=== PATIENT | male | born 1965 | race Caucasian/White ===

== ENCOUNTER 2021-09-16 01:27 | Emergency (ER) | payer MEDICAID ==
[~2021-09-16] VITALS: Ht 177.8 cm; Wt 127.3 kg
[~2021-09-16 01:27] MED LIST: CYCL-120 PO; IBUP-1051 PO
[2021-09-16 02:05] LABS: BASOPHILS % (AUTO) 0.2 % (0-1); EOSINOPHILS # (AUTO) 0.1 X10'3 (0-0.9); EOSINOPHILS % (AUTO) 1.1 % (0-6); HEMATOCRIT 37.2 % (42.0-52.0); HEMOGLOBIN 12.4 g/dl (14.0-17.9); LYMPHOCYTES # (AUTO) 1.6 X10'3 (1.1-4.8); LYMPHOCYTES % (AUTO) 15.7 % (21-51); MEAN CORPUSCULAR HEMOGLOBIN 27.6 PG (27.0-31.0); MEAN CORPUSCULAR HGB CONC 33.5 g/dL (33.0-36.5); MEAN CORPUSCULAR VOLUME 82.5 FL (78-98); MEAN PLATELET VOLUME 7.9 FL (7.4-10.4); MONOCYTES # (AUTO) 0.7 X10'3 (0-0.9); MONOCYTES % (AUTO) 7.4 % (2-12); NEUTROPHILS # (AUTO) 7.6 X10'3 (1.8-7.7); NEUTROPHILS % (AUTO) 75.6 % (42-75); PLATELET COUNT 260 X10'3 (140-440); RED BLOOD COUNT 4.51 X10'6 (4.70-6.10); RED CELL DISTRIBUTION WIDTH 14.8 % (11.5-14.5)
[2021-09-16 02:21] LABS: ALANINE AMINOTRANSFERASE 21 U/L (12-78); ALBUMIN 3.6 G/DL (3.4-5.0); ALBUMIN/GLOBULIN RATIO 0.9 (1.1-1.5); ALKALINE PHOSPHATASE 118 IU/L (46-116); ANION GAP 5 (8-16); ASPARTATE AMINO TRANSFERASE 18 U/L (10-37); BILIRUBIN,TOTAL 0.3 MG/DL (0.1-1.0); BLOOD UREA NITROGEN 20 MG/DL (7-18); CALCIUM 8.8 MG/DL (8.5-10.1); CHLORIDE 104 MMOL/L (99-107); CREATININE 1.33 MG/DL (0.60-1.10); GLUCOSE 94 MG/DL (70-104); POTASSIUM 3.7 MMOL/L (3.5-5.1); SODIUM 138 MMOL/L (135-145); TOTAL CARBON DIOXIDE 28.9 MMOL/L (24-32); TOTAL PROTEIN 7.6 G/DL (6.4-8.2); eGFR 55 ML/MIN
[2021-09-16] MEDS ORDERED: nitroGLYCERIN 0.4mg SUBLingual tab SL PRN (03:20)
[2021-09-16] MEDS: nitroGLYCERIN 0.4mg SUBLingual tab SL PRN ×2 (03:22→03:29)
[2021-09-16 04:38] LABS: C-REACTIVE PROTEIN 1.06 MG/DL (0.0-0.5)
[2021-09-16 04:39] LABS: D-DIMER 0.23 MG/L FEU (0-0.50)
[2021-09-16] MEDS ORDERED: metoprolol tartrate 50mg tablet PO ONE (05:35)
[2021-09-16] MEDS ORDERED: metoprolol tartrate 1mg/ml inj IV SCH (05:35)
[2021-09-16] MEDS ORDERED: hydrALAZINE 20mg/ml inj. IV ONE (05:40)
[2021-09-16] MEDS ORDERED: hyDRALAzine 10mg tablet PO ONE (05:40)
[2021-09-16 06:51] VITALS: BP 171/89
== END 2021-09-16 06:59 | disposition home or self-care (01) ==
LOC: ER 01:28
DX: I10 Essential (primary) hypertension (principal); R06.02 Shortness of breath; R07.89 Other chest pain; F15.10 Other stimulant abuse, uncomplicated; E78.00 Pure hypercholesterolemia, unspecified; K21.9 Gastro-esophageal reflux disease without esophagitis; Z72.89 Other problems related to lifestyle; Z79.899 Other long term (current) drug therapy
CPT/HCPCS: 36415; 71045; 80053; 83880; 84484; 85025; 85379; 86140; 93005; 96374; 96375; 99285; J0360; J3490

== ENCOUNTER 2024-04-16 11:57 | Outpatient (CLI) | payer MEDICAID | END 2024-04-16 23:59 | disposition home or self-care (01) | LOC: RAD 11:57 | PROVIDERS: ATTEND General Practice | DX: M51.379 Other intervertebral disc degeneration, lumbosacral region without mention of lumbar back pain or lower extremity pain (principal); M54.50 Low back pain, unspecified | CPT/HCPCS: 72100; 72220 ==

== ENCOUNTER 2024-05-18 22:16 | Emergency (ER) | payer MEDICAID ==
[~2024-05-18] VITALS: Ht 175.3 cm; Wt 115.0 kg
[2024-05-18 22:21] VITALS: TEMP 98.7
[2024-05-19 00:44] VITALS: BP 155/88
[2024-05-19] MEDS ORDERED: PRED20TA PO (01:33)
[2024-05-19] MEDS ORDERED: AZIT-164 PO (01:33)
[2024-05-19] MEDS ORDERED: ALBU8HFA INH (01:33)
[2024-05-19 01:57] VITALS: PULSE 78; RESP 17; O2SAT 96
[2024-05-19] MEDS: ipratropium/albuterol 3ml nebule NEB ONE (01:57)
[2024-05-19] MEDS: dexamethasone 4mg tablet PO ONE (01:58)
[2024-05-19 02:04] VITALS: PULSE 81; RESP 18
[2024-05-19] MEDS: diphenhydrAMINE 25 MG/10 ML UD oral solution PO ONE (02:13)
[2024-05-19] MEDS: predniSONE 20 mg tablet PO ONE (02:14)
[2024-05-19] MEDS: azithromycin 250mg tablet PO ONE (02:15)
[2024-05-19] MEDS: acetaminophen 325mg tablet PO ONE (02:29)
[2024-05-19 02:34] VITALS: PULSE 80; RESP 16; O2SAT 96
== END 2024-05-19 02:35 | disposition home or self-care (01) ==
LOC: ER 22:17
DX: J20.9 Acute bronchitis, unspecified (principal); E78.00 Pure hypercholesterolemia, unspecified; I10 Essential (primary) hypertension; G47.30 Sleep apnea, unspecified; K21.9 Gastro-esophageal reflux disease without esophagitis; F15.90 Other stimulant use, unspecified, uncomplicated; Z79.1 Long term (current) use of non-steroidal anti-inflammatories (NSAID); Z79.52 Long term (current) use of systemic steroids; Z79.899 Other long term (current) drug therapy; Z20.822 Contact with and (suspected) exposure to COVID-19
CPT/HCPCS: 36415; 71046; 87502; 87503; 87811; 94640; 99284; J7512; Q0163; 94760

== ENCOUNTER 2024-05-24 12:48 | Emergency (ER) | payer MEDICAID ==
[~2024-05-24] VITALS: Ht 175.3 cm; Wt 110.0 kg
[~2024-05-24 12:48] MED LIST changes: +ALBU8HFA INH; +AZIT-164 PO; +PRED20TA PO
[2024-05-24 12:49] VITALS: BP 187/101; TEMP 97.7
[2024-05-24] MEDS: ipratropium 0.5 MG/2.5ML nebule IH ONE (13:28)
[2024-05-24] MEDS: albuterol 2.5 MG/3 ML nebule NEB ONE (13:28)
[2024-05-24] MEDS ORDERED: prednisone 10mg tablet PO STA (13:29)
[2024-05-24 13:31] VITALS: PULSE 88; RESP 16; O2SAT 96
[2024-05-24 13:33] LABS: ALBUMIN 3.7 G/DL (3.4-5.0); ANION GAP 6 (8-16); BASOPHILS % (AUTO) 0.1 % (0-1); BLOOD UREA NITROGEN 14 MG/DL (7-18); BUN/CREATININE RATIO 10.3 (10.0-20.0); CALCIUM 8.9 MG/DL (8.5-10.1); CHLORIDE 107 MMOL/L (99-107); CREATININE 1.36 MG/DL (0.60-1.10); EOSINOPHILS % (AUTO) 0.2 % (0-6); GLUCOSE 117 MG/DL (70-104); HEMATOCRIT 41.3 % (42.0-52.0); HEMOGLOBIN 13.8 g/dl (14.0-17.9); LYMPHOCYTES # (AUTO) 0.7 X10'3 (1.1-4.8); LYMPHOCYTES % (AUTO) 7.8 % (21-51); MEAN CORPUSCULAR HEMOGLOBIN 29.7 PG (27.0-31.0); MEAN CORPUSCULAR HGB CONC 33.4 g/dL (33.0-36.5); MEAN CORPUSCULAR VOLUME 88.8 FL (78-98); MEAN PLATELET VOLUME 8.4 FL (7.4-10.4); MONOCYTES # (AUTO) 0.2 X10'3 (0-0.9); MONOCYTES % (AUTO) 2.2 % (2-12); NEUTROPHILS # (AUTO) 7.8 X10'3 (1.8-7.7); NEUTROPHILS % (AUTO) 89.7 % (42-75); PLATELET COUNT 354 X10'3 (140-440); POTASSIUM 3.6 MMOL/L (3.5-5.1); RED BLOOD COUNT 4.65 X10'6 (4.70-6.10); RED CELL DISTRIBUTION WIDTH 14.3 % (11.5-14.5); SODIUM 146 MMOL/L (135-145); TOTAL CARBON DIOXIDE 32.7 MMOL/L (24-32); WHITE BLOOD COUNT 8.7 X10'3 (4.5-11.0); eCRCL 57 ML/MIN; eGFR 53 ML/MIN
[2024-05-24 13:40] VITALS: PULSE 86; RESP 18; O2SAT 99
[2024-05-24] MEDS: predniSONE 20 mg tablet PO STA (13:53)
[2024-05-24] MEDS: azithromycin 250mg tablet PO ONE (13:54)
[2024-05-24 13:57] VITALS: RESP 22
[2024-05-24] MEDS ORDERED: ADV50100 INH (14:27)
[2024-05-24] MEDS ORDERED: ALB0.5UD IH (14:27)
[2024-05-24] MEDS ORDERED: PRED20TA PO (14:27)
== END 2024-05-24 14:36 | disposition home or self-care (01) ==
LOC: ER 12:48
DX: J44.1 Chronic obstructive pulmonary disease with (acute) exacerbation (principal); E78.00 Pure hypercholesterolemia, unspecified; G47.30 Sleep apnea, unspecified; I10 Essential (primary) hypertension; K21.9 Gastro-esophageal reflux disease without esophagitis; F15.90 Other stimulant use, unspecified, uncomplicated; F10.90 Alcohol use, unspecified, uncomplicated; Z79.1 Long term (current) use of non-steroidal anti-inflammatories (NSAID); Z79.52 Long term (current) use of systemic steroids; Z79.899 Other long term (current) drug therapy
CPT/HCPCS: 36415; 71045; 80048; 84484; 85025; 93005; 94640; 99285; J7512; 94760

== ENCOUNTER 2024-06-03 10:52 | Inpatient (IN) | payer MEDICAID ==
[2024-06-03] VITALS (10 sets, daily range): BP systolic 120; BP diastolic 54; PULSE 71–88; RESP 14–24; TEMP 97.7; O2SAT 94–99
[~2024-06-03] VITALS: Ht 175.3 cm; Wt 108.0 kg
[~2024-06-03 10:52] MED LIST changes: +ADV50100 INH; +ALB0.5UD IH
[2024-06-03] MEDS ORDERED: ipratropium/albuterol 3ml nebule NEB PRN (11:40)
[2024-06-03] MEDS: CefTRIAXone 2gm/D5W 50ml BAG 50 ML IV ONE (11:53)
[2024-06-03] MEDS: methylPREDNISolone sod succ 125mg/2ml vial IV ONE (12:01)
[2024-06-03] MEDS: nicotine 21mg patch - 24 hr TD ONE (12:14)
[2024-06-03 12:20] LABS: BASOPHILS % (AUTO) 0.3 % (0-1); EOSINOPHILS # (AUTO) 0.1 X10'3 (0-0.9); EOSINOPHILS % (AUTO) 0.7 % (0-6); HEMATOCRIT 41.3 % (42.0-52.0); HEMOGLOBIN 13.9 g/dl (14.0-17.9); LYMPHOCYTES # (AUTO) 1.5 X10'3 (1.1-4.8); LYMPHOCYTES % (AUTO) 14.6 % (21-51); MEAN CORPUSCULAR HGB CONC 33.7 g/dL (33.0-36.5); MEAN CORPUSCULAR VOLUME 88.9 FL (78-98); MEAN PLATELET VOLUME 8.4 FL (7.4-10.4); MONOCYTES # (AUTO) 0.6 X10'3 (0-0.9); MONOCYTES % (AUTO) 5.7 % (2-12); NEUTROPHILS # (AUTO) 8.2 X10'3 (1.8-7.7); NEUTROPHILS % (AUTO) 78.7 % (42-75); PLATELET COUNT 334 X10'3 (140-440); RED BLOOD COUNT 4.65 X10'6 (4.70-6.10); RED CELL DISTRIBUTION WIDTH 14.2 % (11.5-14.5); WHITE BLOOD COUNT 10.4 X10'3 (4.5-11.0)
[2024-06-03 12:33] LABS: D-DIMER 4.34 MG/L FEU (0-0.50)
[2024-06-03 12:44] LABS: ALANINE AMINOTRANSFERASE 22 U/L (12-78); ALBUMIN 3.2 G/DL (3.4-5.0); ALKALINE PHOSPHATASE 77 IU/L (46-116); ANION GAP 5 (8-16); ASPARTATE AMINO TRANSFERASE 18 U/L (10-37); BILIRUBIN,TOTAL 0.7 MG/DL (0.1-1.0); BLOOD UREA NITROGEN 18 MG/DL (7-18); BUN/CREATININE RATIO 13.5 (10.0-20.0); CALCIUM 8.4 MG/DL (8.5-10.1); CHLORIDE 103 MMOL/L (99-107); CREATININE 1.33 MG/DL (0.60-1.10); GLUCOSE 120 MG/DL (70-104); POTASSIUM 3.8 MMOL/L (3.5-5.1); SODIUM 140 MMOL/L (135-145); TOTAL CARBON DIOXIDE 31.9 MMOL/L (24-32); TOTAL PROTEIN 6.5 G/DL (6.4-8.2); eCRCL 58 ML/MIN; eGFR 55 ML/MIN
[2024-06-03 12:45] LABS: PRO BRAIN NATRIURETIC PEPTIDE 1351 PG/ML (0-125)
[2024-06-03] MEDS ORDERED: iohexol 300mg/ml 100ml inj. ONE (13:07)
[2024-06-03] MEDS: diphenhydrAMINE 50 mg/ml inj IV ONE (13:19)
[2024-06-03] MEDS: ipratropium/albuterol 3ml nebule NEB ONE (13:54)
[2024-06-03] MEDS ORDERED: enoxaparin 100mg/ml syringe SUBCUT ONE (14:20)
[2024-06-03] MEDS ORDERED: potassium Cl 20 mEq SR tablet PO PRN ×2 (14:35)
[2024-06-03] MEDS ORDERED: ondansetron/PF 4mg/2ml inj IV PRN (14:35)
[2024-06-03] MEDS ORDERED: HYDROcodone/acetaminophen 10/325mg tab PO PRN (14:35)
[2024-06-03] MEDS ORDERED: acetaminophen 325mg tablet PO PRN (14:35)
[2024-06-03] MEDS ORDERED: magnesium Cl slow-release 64mg tablet PO PRN (14:35)
[2024-06-03] MEDS ORDERED: magnesium sulf-water 2g/50mL 50 ML IV PRN (14:35)
[2024-06-03] MEDS ORDERED: magnesium sulf-water 4G/100mL 100 ML IV PRN (14:35)
[2024-06-03] MEDS ORDERED: HYDROcodone/acetaminophen 5mg/325mg tablet PO PRN (14:35)
[2024-06-03] MEDS ORDERED: potassium Cl 40MEQ/1/2NS 520ml 520 ML IV PRN (14:35)
[2024-06-03] MEDS ORDERED: mag hydrox/Alum hydrox/simeth 30ml oral suspension PO PRN (14:35)
[2024-06-03] MEDS: enoxaparin 80mg/0.8ml syringe SUBCUT ONE (14:43)
[2024-06-03] MEDS ORDERED: albuterol 2.5 MG/3 ML nebule NEB PRN (15:30)
[2024-06-03 16:15] LABS: MAGNESIUM 2.2 MG/DL (1.5-2.4)
[2024-06-03] MEDS: azithromycin/NS 500mg/250ml 250 ML IV SCH (16:50)
[2024-06-03] MEDS: normal saline 1000ml 1,000 ML IV SCH (16:50)
[2024-06-03] MEDS: lisinopril 5mg tablet PO SCH (16:50)
[2024-06-03] MEDS: ipratropium/albuterol 3ml nebule NEB SCH (16:58)
[2024-06-03] MEDS: K and/or MAG REPLACEMENT MC SCH (20:00)
[2024-06-03] MEDS ORDERED: CefTRIAXone/D5W-Rocephin 1gm 50 ML IV SCH (20:30)
[2024-06-03] MEDS: methylPREDNISolone sod succ 125mg/2ml vial IV SCH (21:22)
[2024-06-03] MEDS: furosemide 20MG tablet PO SCH (21:22)
[2024-06-03] MEDS: enoxaparin 30mg/0.3ml syringe SUBCUT SCH (21:23)
[2024-06-04] VITALS (20 sets, daily range): BP systolic 107–133; BP diastolic 47–59; PULSE 66–112; RESP 14–23; TEMP 97.5–98.4; O2SAT 94–98
[2024-06-04 03:01] LABS: BILIRUBIN,URINE NEGATIVE (Neg); CLARITY,URINE CLEAR (Clear); COLOR,URINE YELLOW (Yellow); GLUCOSE, URINE 100 mg/dl (Neg); KETONES,URINE NEGATIVE (Neg); LEUKOCYTE ESTERASE ,URINE NEGATIVE (Neg); NITRITES, URINE NEGATIVE (Neg); OCCULT BLOOD,URINE NEGATIVE (Neg); PH,URINE 5.5 (4.8-8.0); PROTEIN,URINE NEGATIVE (Neg); UROBILINOGEN,URINE 0.2 E.U/dL (0.2-1.0)
[2024-06-04 03:09] LABS: URINE AMPHETAMINE SCREEN NEGATIVE (Neg); URINE BARBITUATE SCREEN NEGATIVE (Neg); URINE BENZODIAZEPINES SCREEN NEGATIVE (Neg); URINE CANNABINOID SCREEN NEGATIVE (Neg); URINE COCAINE SCREEN NEGATIVE (Neg); URINE METHADONE SCREEN NEGATIVE (Neg); URINE OPIATE SCREEN NEGATIVE (Neg); URINE PHENCYCLIDINE SCREEN NEGATIVE (Neg)
[2024-06-04 03:21] LABS: UA COLLECTION TYPE CLN CATCH MIDSTREAM
[2024-06-04 05:02] LABS: BASOPHILS % (AUTO) 0 % (0-1); EOSINOPHILS % (AUTO) 0 % (0-6); HEMATOCRIT 38.9 % (42.0-52.0); HEMOGLOBIN 13.1 g/dl (14.0-17.9); LYMPHOCYTES # (AUTO) 0.2 X10'3 (1.1-4.8); LYMPHOCYTES % (AUTO) 2.7 % (21-51); MEAN CORPUSCULAR HEMOGLOBIN 29.6 PG (27.0-31.0); MEAN CORPUSCULAR HGB CONC 33.6 g/dL (33.0-36.5); MEAN CORPUSCULAR VOLUME 87.9 FL (78-98); MEAN PLATELET VOLUME 8.7 FL (7.4-10.4); MONOCYTES # (AUTO) 0.1 X10'3 (0-0.9); MONOCYTES % (AUTO) 0.7 % (2-12); NEUTROPHILS # (AUTO) 8.3 X10'3 (1.8-7.7); NEUTROPHILS % (AUTO) 96.6 % (42-75); PLATELET COUNT 274 X10'3 (140-440); RED BLOOD COUNT 4.43 X10'6 (4.70-6.10); RED CELL DISTRIBUTION WIDTH 14.2 % (11.5-14.5); WHITE BLOOD COUNT 8.6 X10'3 (4.5-11.0)
[2024-06-04 05:14] LABS: PROTHROMBIN TIME 10.8 SECONDS (9.0-12.0)
[2024-06-04 05:31] LABS: ALANINE AMINOTRANSFERASE 23 U/L (12-78); ALBUMIN/GLOBULIN RATIO 0.9 (1.1-1.5); ALKALINE PHOSPHATASE 72 IU/L (46-116); ANION GAP 9 (8-16); ASPARTATE AMINO TRANSFERASE 13 U/L (10-37); BILIRUBIN,TOTAL 0.4 MG/DL (0.1-1.0); BLOOD UREA NITROGEN 21 MG/DL (7-18); CALCIUM 8.8 MG/DL (8.5-10.1); CHLORIDE 103 MMOL/L (99-107); GLUCOSE 209 MG/DL (70-104); MAGNESIUM 2.2 MG/DL (1.5-2.4); PHOSPHORUS 3.1 MG/DL (2.3-4.5); POTASSIUM 3.8 MMOL/L (3.5-5.1); SODIUM 140 MMOL/L (135-145); TOTAL CARBON DIOXIDE 27.7 MMOL/L (24-32); TOTAL PROTEIN 6.5 G/DL (6.4-8.2); eCRCL 55 ML/MIN; eGFR 52 ML/MIN
[2024-06-04] MEDS: CefTRIAXone/D5W-Rocephin 1gm 50 ML IV SCH (08:29)
[2024-06-04] MEDS: nicotine 14mg patch - 24hr TD SCH (08:30)
[2024-06-04] MEDS: famotidine 20mg tablet PO SCH (08:32)
[2024-06-04] MEDS: morphine 2 MG/ML inj. syringe IV ONE (10:29)
[2024-06-04] MEDS: guaiFENesin ER 600mg tablet PO SCH (13:05)
[2024-06-04] MEDS ORDERED: morphine 2 MG/ML inj. syringe IV PRN (14:05)
[2024-06-04] MEDS: acetaminophen 325mg tablet PO PRN (16:45)
[2024-06-04] MEDS: nitroGLYCERIN 0.4mg SUBLingual tab SL PRN (17:51)
[2024-06-04] MEDS: aspirin 325mg tablet PO ONE (17:51)
[2024-06-04 18:41] LABS: CHOL/HDL RATIO 2.1 (0.00-4.99); CHOLESTEROL 164 MG/DL (0-200); HDL CHOLESTEROL 78 MG/DL (35-60); LDL CHOLESTEROL 66 MG/DL (50-100); TRIGLYCERIDES 93 MG/DL (20-135)
[2024-06-04] MEDS: pantoprazole 40 MG vial IV SCH (20:53)
[2024-06-04] MEDS ORDERED: ROPI4TAB41 PO (21:07)
[2024-06-04] MEDS ORDERED: OMEP20CA16 PO (21:07)
[2024-06-05] VITALS (16 sets, daily range): BP systolic 136–167; BP diastolic 64–90; PULSE 79–111; RESP 12–25; TEMP 98.2–99.5; O2SAT 93–96
[2024-06-05] MEDS ORDERED: ADV50100 INH (00:59)
[2024-06-05] MEDS ORDERED: ALBU8HFA INH (01:07)
[2024-06-05] MEDS ORDERED: ALB0.5UD IH (01:08)
[2024-06-05 07:21] LABS: BASOPHILS % (AUTO) 0 % (0-1); EOSINOPHILS % (AUTO) 0 % (0-6); HEMATOCRIT 37.2 % (42.0-52.0); HEMOGLOBIN 12.3 g/dl (14.0-17.9); LYMPHOCYTES # (AUTO) 0.2 X10'3 (1.1-4.8); LYMPHOCYTES % (AUTO) 1.5 % (21-51); MEAN CORPUSCULAR HEMOGLOBIN 29.2 PG (27.0-31.0); MEAN CORPUSCULAR VOLUME 88.4 FL (78-98); MEAN PLATELET VOLUME 8.6 FL (7.4-10.4); MONOCYTES # (AUTO) 0.3 X10'3 (0-0.9); MONOCYTES % (AUTO) 1.6 % (2-12); NEUTROPHILS # (AUTO) 15.9 X10'3 (1.8-7.7); NEUTROPHILS % (AUTO) 96.9 % (42-75); PLATELET COUNT 270 X10'3 (140-440); RED CELL DISTRIBUTION WIDTH 14.3 % (11.5-14.5); WHITE BLOOD COUNT 16.4 X10'3 (4.5-11.0)
[2024-06-05 07:50] LABS: ALANINE AMINOTRANSFERASE 14 U/L (12-78); ALBUMIN/GLOBULIN RATIO 0.9 (1.1-1.5); ALKALINE PHOSPHATASE 71 IU/L (46-116); ANION GAP 7 (8-16); ASPARTATE AMINO TRANSFERASE 10 U/L (10-37); BILIRUBIN,TOTAL 0.3 MG/DL (0.1-1.0); BLOOD UREA NITROGEN 33 MG/DL (7-18); BUN/CREATININE RATIO 17.7 (10.0-20.0); CALCIUM 8.6 MG/DL (8.5-10.1); CHLORIDE 102 MMOL/L (99-107); CREATININE 1.86 MG/DL (0.60-1.10); GLUCOSE 156 MG/DL (70-104); MAGNESIUM 2.2 MG/DL (1.5-2.4); PHOSPHORUS 3.3 MG/DL (2.3-4.5); POTASSIUM 4.3 MMOL/L (3.5-5.1); SODIUM 139 MMOL/L (135-145); TOTAL CARBON DIOXIDE 30.2 MMOL/L (24-32); TOTAL PROTEIN 6.3 G/DL (6.4-8.2); eCRCL 42 ML/MIN; eGFR 37 ML/MIN
[2024-06-05] MEDS ORDERED: nitroGLYCERIN 0.4mg SUBLingual tab SL PRN (14:55)
[2024-06-05] MEDS ORDERED: metoprolol tartrate 1mg/ml inj IV PRN (14:55)
[2024-06-05] MEDS ORDERED: aminophylline 250mg/10ml inj. IV PRN (14:55)
[2024-06-05] MEDS ORDERED: ROPINIRole 1mg tablet PO PRN (15:15)
[2024-06-05] MEDS: aspirin 81mg, enteric-coated 1 TAB TABLET.DR PO ONE (16:18)
[2024-06-05] MEDS: lisinopril 5mg tablet PO SCH (16:21)
[2024-06-06] VITALS (20 sets, daily range): BP systolic 116–170; BP diastolic 64–82; PULSE 71–101; RESP 14–21; TEMP 97.3–98.4; O2SAT 92–98
[2024-06-06 09:03] LABS: BASOPHILS % (AUTO) 0 % (0-1); EOSINOPHILS % (AUTO) 0 % (0-6); HEMATOCRIT 38.3 % (42.0-52.0); HEMOGLOBIN 12.6 g/dl (14.0-17.9); LYMPHOCYTES # (AUTO) 0.3 X10'3 (1.1-4.8); LYMPHOCYTES % (AUTO) 2.5 % (21-51); MEAN CORPUSCULAR HEMOGLOBIN 29.4 PG (27.0-31.0); MEAN CORPUSCULAR VOLUME 89.1 FL (78-98); MEAN PLATELET VOLUME 8.9 FL (7.4-10.4); MONOCYTES # (AUTO) 0.2 X10'3 (0-0.9); MONOCYTES % (AUTO) 1.8 % (2-12); NEUTROPHILS # (AUTO) 11.5 X10'3 (1.8-7.7); NEUTROPHILS % (AUTO) 95.7 % (42-75); PLATELET COUNT 273 X10'3 (140-440); RED CELL DISTRIBUTION WIDTH 14.5 % (11.5-14.5)
[2024-06-06 09:58] LABS: ALANINE AMINOTRANSFERASE 18 U/L (12-78); ALBUMIN 3.2 G/DL (3.4-5.0); ALBUMIN/GLOBULIN RATIO 0.9 (1.1-1.5); ALKALINE PHOSPHATASE 80 IU/L (46-116); ANION GAP 7 (8-16); ASPARTATE AMINO TRANSFERASE 18 U/L (10-37); BILIRUBIN,TOTAL 0.3 MG/DL (0.1-1.0); BLOOD UREA NITROGEN 35 MG/DL (7-18); BUN/CREATININE RATIO 22.7 (10.0-20.0); CHLORIDE 105 MMOL/L (99-107); CREATININE 1.54 MG/DL (0.60-1.10); GLUCOSE 146 MG/DL (70-104); MAGNESIUM 2.4 MG/DL (1.5-2.4); PHOSPHORUS 4.4 MG/DL (2.3-4.5); POTASSIUM 4.1 MMOL/L (3.5-5.1); SODIUM 141 MMOL/L (135-145); TOTAL CARBON DIOXIDE 28.8 MMOL/L (24-32); TOTAL PROTEIN 6.7 G/DL (6.4-8.2); eCRCL 50 ML/MIN; eGFR 46 ML/MIN
[2024-06-06] MEDS: regadenoson 0.4mg/5ml syringe IV PRN (09:58)
[2024-06-06] MEDS ORDERED: FURO20TA4 PO (12:55)
[2024-06-06] MEDS ORDERED: NITR0.4T51 SL (12:55)
[2024-06-06] MEDS ORDERED: PRED10TA23 PO (12:55)
[2024-06-06] MEDS ORDERED: GUAI600T45 PO (12:55)
[2024-06-06] MEDS ORDERED: ASPI-1265 PO (12:57)
[2024-06-06] MEDS ORDERED: CEFD300C3 PO (12:57)
[2024-06-06] MEDS ORDERED: METO50TA16 PO (12:57)
[2024-06-06] MEDS ORDERED: ATOR20TA66 PO (12:57)
[2024-06-06] MEDS: lisinopril 10 MG tablet PO ONE (17:50)
== END 2024-06-06 19:25 | disposition home or self-care (01) | DRG 140 ==
LOC: ER 10:52 → PCU 3S 14:39
PROVIDERS: ADMIT Internal Medicine; ATTEND Internal Medicine
PROC: 4A02XM4 Measurement of Cardiac Total Activity, External Approach (ICD-10-PCS; principal; 2024-06-06)
PROC: 3E073KZ Introduction of Other Diagnostic Substance into Coronary Artery, Percutaneous Approach (ICD-10-PCS; 2024-06-06)
DX: J44.1 Chronic obstructive pulmonary disease with (acute) exacerbation (principal); N17.0 Acute kidney failure with tubular necrosis; I21.A1 Myocardial infarction type 2; I50.33 Acute on chronic diastolic (congestive) heart failure; I13.0 Hypertensive heart and chronic kidney disease with heart failure and stage 1 through stage 4 chronic kidney disease, or unspecified chronic kidney disease; E78.00 Pure hypercholesterolemia, unspecified; Z20.822 Contact with and (suspected) exposure to COVID-19; G47.30 Sleep apnea, unspecified; F17.210 Nicotine dependence, cigarettes, uncomplicated; K21.9 Gastro-esophageal reflux disease without esophagitis; F15.90 Other stimulant use, unspecified, uncomplicated; R60.0 Localized edema; G25.81 Restless legs syndrome; N18.30 Chronic kidney disease, stage 3 unspecified; Z59.00 Homelessness unspecified; Z79.899 Other long term (current) drug therapy
CPT/HCPCS: 36415; 70487; 71045; 78452; 80053; 80061; 80305; 81003; 83036; 83605; 83735; 83880; 84100; 84132; 84145; 84484; 85025; 85379; 85610; 85651; 86140; 87040; 87081; 87502; 87503; 87811; 93005; 93017; 93306; 93970; 94640; 94760; 96374; 97116; 97161; 97530; 99285; A9500; G0378; J0456; J0696; J1200; J1650; J2270; J2470; J2785; J2919; J7030; J7040; J7050; Q9967

== ENCOUNTER 2024-06-10 08:13 | Emergency (ER) | payer MEDICAID ==
[~2024-06-10] VITALS: Ht 175.3 cm; Wt 113.2 kg
[~2024-06-10 08:13] MED LIST changes: +ASPI-1265 PO; +ATOR20TA66 PO; -AZIT-164 PO; +CEFD300C3 PO; -CYCL-120 PO; +FURO20TA4 PO; +GUAI600T45 PO; -IBUP-1051 PO; +METO50TA16 PO; +NITR0.4T51 SL; +OMEP20CA16 PO; +PRED10TA23 PO; -PRED20TA PO; +ROPI4TAB41 PO
[2024-06-10 08:16] VITALS: BP 152/130; PULSE 98; TEMP 98.3; O2SAT 98
[2024-06-10] MEDS: predniSONE 20 mg tablet PO ONE (10:27)
[2024-06-10] MEDS: famotidine 20mg tablet PO ONE (10:27)
[2024-06-10] MEDS: diphenhydrAMINE 25mg capsule PO ONE (10:27)
[2024-06-10] MEDS ORDERED: DIPH25CA83 PO (10:39)
[2024-06-10 10:50] VITALS: RESP 18
== END 2024-06-10 10:51 | disposition home or self-care (01) ==
LOC: ER 08:13
DX: L50.9 Urticaria, unspecified (principal); L29.9 Pruritus, unspecified; E78.00 Pure hypercholesterolemia, unspecified; G47.30 Sleep apnea, unspecified; I10 Essential (primary) hypertension; K21.9 Gastro-esophageal reflux disease without esophagitis; F15.90 Other stimulant use, unspecified, uncomplicated; J44.9 Chronic obstructive pulmonary disease, unspecified; Z79.82 Long term (current) use of aspirin; Z79.899 Other long term (current) drug therapy; Z79.2 Long term (current) use of antibiotics
CPT/HCPCS: 99284; J7512; Q0163

== ENCOUNTER 2024-07-17 22:15 | Emergency (ER) | payer MEDICAID ==
[~2024-07-17] VITALS: Ht 175.3 cm; Wt 106.8 kg
[~2024-07-17 22:15] MED LIST changes: -ASPI-1265 PO; -CEFD300C3 PO; +COLC0.6C3 PO; +DIPH25CA83 PO; +IBUP-864 PO; -METO50TA16 PO; +OMEP40CA21 PO; -PRED10TA23 PO
[2024-07-17] MEDS: HYDROmorphone 1 mg/ml syringe IM ONE (22:31)
[2024-07-17] MEDS: predniSONE 20 mg tablet PO ONE (22:33)
[2024-07-17] MEDS ORDERED: OXYC-658 PO (22:55)
[2024-07-17] MEDS ORDERED: PRED50TA PO (22:55)
[2024-07-17] MEDS: HYDROmorphone 1 mg/ml syringe IV ONE (23:53)
[2024-07-17] MEDS: normal saline 1000ml 1,000 ML IV ONE (23:53)
[2024-07-18 00:18] LABS: BASOPHILS % (AUTO) 0.2 % (0-1); EOSINOPHILS % (AUTO) 0 % (0-6); HEMOGLOBIN 13.4 g/dl (14.0-17.9); LYMPHOCYTES # (AUTO) 1.5 X10'3 (1.1-4.8); LYMPHOCYTES % (AUTO) 10.1 % (21-51); MEAN CORPUSCULAR HEMOGLOBIN 29.2 PG (27.0-31.0); MEAN CORPUSCULAR HGB CONC 33.5 g/dL (33.0-36.5); MEAN CORPUSCULAR VOLUME 87.2 FL (78-98); MEAN PLATELET VOLUME 9.4 FL (7.4-10.4); NEUTROPHILS # (AUTO) 12.3 X10'3 (1.8-7.7); NEUTROPHILS % (AUTO) 82.7 % (42-75); PLATELET COUNT 282 X10'3 (140-440); RED BLOOD COUNT 4.58 X10'6 (4.70-6.10); RED CELL DISTRIBUTION WIDTH 14.8 % (11.5-14.5); WHITE BLOOD COUNT 14.8 X10'3 (4.5-11.0)
[2024-07-18 00:32] LABS: ALANINE AMINOTRANSFERASE 20 U/L (12-78); ALBUMIN 3.5 G/DL (3.4-5.0); ALBUMIN/GLOBULIN RATIO 1.1 (1.1-1.5); ALKALINE PHOSPHATASE 97 IU/L (46-116); ANION GAP 7 (8-16); ASPARTATE AMINO TRANSFERASE 24 U/L (10-37); BILIRUBIN,TOTAL 0.6 MG/DL (0.1-1.0); BLOOD UREA NITROGEN 17 MG/DL (7-18); BUN/CREATININE RATIO 12.5 (10.0-20.0); CALCIUM 9.6 MG/DL (8.5-10.1); CHLORIDE 104 MMOL/L (99-107); CREATININE 1.36 MG/DL (0.60-1.10); GLUCOSE 103 MG/DL (70-104); POTASSIUM 4.2 MMOL/L (3.5-5.1); SODIUM 141 MMOL/L (135-145); TOTAL CARBON DIOXIDE 29.7 MMOL/L (24-32); TOTAL PROTEIN 6.8 G/DL (6.4-8.2); eCRCL 57 ML/MIN; eGFR 53 ML/MIN
[2024-07-18 02:01] VITALS: BP 164/84; PULSE 86; RESP 18; TEMP 98.6; O2SAT 97
[2024-07-18] MEDS ORDERED: PRED50TA PO (07:47)
[2024-07-18] MEDS ORDERED: OXYC-658 PO (07:47)
== END 2024-07-18 02:04 | disposition home or self-care (01) ==
LOC: ER 22:16
DX: M10.9 Gout, unspecified (principal); E78.00 Pure hypercholesterolemia, unspecified; G47.30 Sleep apnea, unspecified; I10 Essential (primary) hypertension; K21.9 Gastro-esophageal reflux disease without esophagitis; F15.90 Other stimulant use, unspecified, uncomplicated
CPT/HCPCS: 36415; 71045; 80053; 85025; 93005; 96372; 96374; 99285; J1171; J7030; J7512

== ENCOUNTER 2024-07-18 06:47 | Emergency (ER) | payer MEDICAID ==
[~2024-07-18] VITALS: Ht 175.3 cm; Wt 106.8 kg
[~2024-07-18 06:47] MED LIST changes: +OXYC-658 PO; +PRED50TA PO
[2024-07-18] MEDS ORDERED: OXYC-658 PO (07:47)
[2024-07-18] MEDS ORDERED: PRED50TA PO (07:47)
[2024-07-18 08:05] VITALS: PULSE 95; RESP 16; TEMP 98; O2SAT 98
== END 2024-07-18 08:06 | disposition home or self-care (01) ==
LOC: ER 06:48
DX: M79.671 Pain in right foot (principal); Z76.0 Encounter for issue of repeat prescription; E78.00 Pure hypercholesterolemia, unspecified; I10 Essential (primary) hypertension; K21.9 Gastro-esophageal reflux disease without esophagitis; G47.30 Sleep apnea, unspecified; F10.90 Alcohol use, unspecified, uncomplicated; F15.90 Other stimulant use, unspecified, uncomplicated; Y90.9 Presence of alcohol in blood, level not specified
CPT/HCPCS: 99281; 99283

== ENCOUNTER 2024-08-08 00:19 | Emergency (ER) | payer MEDICAID ==
[~2024-08-08] VITALS: Ht 175.3 cm; Wt 102.8 kg
[2024-08-08 00:24] VITALS: TEMP 97.4
[2024-08-08 00:39] LABS: BASOPHILS # (AUTO) 0.1 X10'3 (0-0.2); BASOPHILS % (AUTO) 0.6 % (0-1); EOSINOPHILS # (AUTO) 0.1 X10'3 (0-0.9); EOSINOPHILS % (AUTO) 0.8 % (0-6); HEMATOCRIT 42.8 % (42.0-52.0); HEMOGLOBIN 14.2 g/dl (14.0-17.9); LYMPHOCYTES # (AUTO) 2.4 X10'3 (1.1-4.8); LYMPHOCYTES % (AUTO) 22.6 % (21-51); MEAN CORPUSCULAR HGB CONC 33.2 g/dL (33.0-36.5); MEAN CORPUSCULAR VOLUME 87.3 FL (78-98); MEAN PLATELET VOLUME 9.4 FL (7.4-10.4); MONOCYTES # (AUTO) 0.7 X10'3 (0-0.9); MONOCYTES % (AUTO) 6.6 % (2-12); NEUTROPHILS # (AUTO) 7.4 X10'3 (1.8-7.7); NEUTROPHILS % (AUTO) 69.4 % (42-75); PLATELET COUNT 287 X10'3 (140-440); RED CELL DISTRIBUTION WIDTH 15.1 % (11.5-14.5); WHITE BLOOD COUNT 10.7 X10'3 (4.5-11.0)
[2024-08-08] MEDS: ipratropium/albuterol 3ml nebule NEB STA (00:42)
[2024-08-08 00:43] VITALS: PULSE 96; RESP 20; O2SAT 96
[2024-08-08 00:48] LABS: ALANINE AMINOTRANSFERASE 17 U/L (12-78); ALBUMIN/GLOBULIN RATIO 1.1 (1.1-1.5); ALKALINE PHOSPHATASE 85 IU/L (46-116); ANION GAP 7 (8-16); ASPARTATE AMINO TRANSFERASE 21 U/L (10-37); BILIRUBIN,TOTAL 0.7 MG/DL (0.1-1.0); BLOOD UREA NITROGEN 16 MG/DL (7-18); BUN/CREATININE RATIO 11.3 (10.0-20.0); CALCIUM 9.1 MG/DL (8.5-10.1); CHLORIDE 103 MMOL/L (99-107); CREATININE 1.41 MG/DL (0.60-1.10); GLUCOSE 115 MG/DL (70-104); POTASSIUM 3.7 MMOL/L (3.5-5.1); SODIUM 140 MMOL/L (135-145); TOTAL CARBON DIOXIDE 30.4 MMOL/L (24-32); TOTAL PROTEIN 7.6 G/DL (6.4-8.2); eCRCL 55 ML/MIN; eGFR 51 ML/MIN
[2024-08-08 00:49] VITALS: PULSE 92; RESP 18
[2024-08-08 00:56] LABS: PRO BRAIN NATRIURETIC PEPTIDE 250 PG/ML (0-125)
[2024-08-08] MEDS: methylPREDNISolone sod succ 125mg/2ml vial IV ONE (01:02)
[2024-08-08] MEDS: magnesium sulf-water 2g/50mL 50 ML IV ONE (01:02)
[2024-08-08] MEDS ORDERED: ALBU18HF2 INH (01:47)
[2024-08-08] MEDS ORDERED: FLUT1DIS20 INH (01:47)
[2024-08-08] MEDS ORDERED: DOXY100C43 PO (01:47)
[2024-08-08] MEDS ORDERED: PRED20TA PO (01:47)
[2024-08-08] MEDS: acetaminophen 325mg tablet PO ONE (01:56)
[2024-08-08 02:00] VITALS: BP 151/65
[2024-08-08] MEDS: albuterol 2.5 MG/3 ML nebule NEB ONE (02:20)
[2024-08-08 02:21] VITALS: PULSE 72; RESP 20; O2SAT 96
[2024-08-08 02:25] VITALS: PULSE 74; RESP 18
== END 2024-08-08 03:14 | disposition home or self-care (01) ==
LOC: ER 00:20
DX: J44.1 Chronic obstructive pulmonary disease with (acute) exacerbation (principal); E78.00 Pure hypercholesterolemia, unspecified; F17.290 Nicotine dependence, other tobacco product, uncomplicated; G47.30 Sleep apnea, unspecified; I10 Essential (primary) hypertension; F15.90 Other stimulant use, unspecified, uncomplicated; K21.9 Gastro-esophageal reflux disease without esophagitis; Z79.899 Other long term (current) drug therapy; Z79.52 Long term (current) use of systemic steroids
CPT/HCPCS: 36415; 71045; 80053; 83880; 84484; 85025; 93005; 94640; 96365; 96375; 99285; J2919; 94760

== ENCOUNTER 2024-08-15 20:20 | Emergency (ER) | payer MEDICAID ==
[~2024-08-15] VITALS: Ht 177.8 cm; Wt 105.1 kg
[~2024-08-15 20:20] MED LIST changes: +ALBU18HF2 INH; +DOXY100C43 PO; +FLUT1DIS20 INH; -OMEP40CA21 PO; +PRED20TA PO
[2024-08-15] MEDS: DOXYCYCLINE 100MG CAPSULE PO STA (21:32)
[2024-08-15] MEDS: clotrimazole topical cream 15gm tube TP SCH (21:33)
[2024-08-15] MEDS ORDERED: CLOT15CR73 TOP (22:40)
[2024-08-15] MEDS ORDERED: DOXY100C43 PO (22:40)
[2024-08-15 22:55] VITALS: BP 145/82; PULSE 94; RESP 18; TEMP 98.2; O2SAT 95
== END 2024-08-15 22:59 | disposition home or self-care (01) ==
LOC: ER 20:20
DX: B35.3 Tinea pedis (principal); G47.30 Sleep apnea, unspecified; E78.00 Pure hypercholesterolemia, unspecified; I10 Essential (primary) hypertension; J44.9 Chronic obstructive pulmonary disease, unspecified; K21.9 Gastro-esophageal reflux disease without esophagitis; Z79.899 Other long term (current) drug therapy
CPT/HCPCS: 99283

== ENCOUNTER 2024-12-20 20:09 | Emergency (ER) | payer MEDICAID ==
[~2024-12-20] VITALS: Ht 175.3 cm; Wt 86.3 kg
[~2024-12-20 20:09] MED LIST changes: -DOXY100C43 PO; -PRED20TA PO
--- NOTE | 2024-12-20 20:19 | ELECTROCARDIOGRAPH REPORT ---
[facility] Test Date: 2024-12-20 Test Time: 20:17:43 Pat Name: JUAN CARLOS PADGETT Department: EMERGENCY ROOM Room: Gender: M [employer] Director: FRANKO : 1965 Requested By: SACHA MOURA Order Number: [id number] Reading MD: Measurements Intervals [place] Rate: 88 P: 89 HI: 131 QRS: 50 QRSD: 92 T: 97 QT: 374 QTc: 453 Interpretive Statements Sinus rhythm Nonspecific T abnormalities, lateral leads Please click the below link to view image of tracing.
[2024-12-20 21:17] LABS: BASOPHILS % (AUTO) 0.4 % (0-1); EOSINOPHILS # (AUTO) 0.2 X10'3 (0-0.9); EOSINOPHILS % (AUTO) 2.3 % (0-6); HEMATOCRIT 41.8 % (42.0-52.0); HEMOGLOBIN 13.9 g/dl (14.0-17.9); LYMPHOCYTES # (AUTO) 1.6 X10'3 (1.1-4.8); LYMPHOCYTES % (AUTO) 19.9 % (21-51); MEAN CORPUSCULAR HEMOGLOBIN 27.8 PG (27.0-31.0); MEAN CORPUSCULAR HGB CONC 33.2 g/dL (33.0-36.5); MEAN CORPUSCULAR VOLUME 83.8 FL (78-98); MEAN PLATELET VOLUME 9.1 FL (7.4-10.4); MONOCYTES # (AUTO) 0.8 X10'3 (0-0.9); MONOCYTES % (AUTO) 10.1 % (2-12); NEUTROPHILS # (AUTO) 5.5 X10'3 (1.8-7.7); NEUTROPHILS % (AUTO) 67.3 % (42-75); PLATELET COUNT 263 X10'3 (140-440); RED BLOOD COUNT 4.99 X10'6 (4.70-6.10); RED CELL DISTRIBUTION WIDTH 14.9 % (11.5-14.5); WHITE BLOOD COUNT 8.2 X10'3 (4.5-11.0)
[2024-12-20 21:37] LABS: ALBUMIN 3.7 G/DL (3.4-5.0); ANION GAP 5 (8-16); BLOOD UREA NITROGEN 35 MG/DL (7-18); BUN/CREATININE RATIO 13.3 (10.0-20.0); CALCIUM 8.9 MG/DL (8.5-10.1); CHLORIDE 107 MMOL/L (99-107); CREATININE 2.64 MG/DL (0.60-1.10); GLUCOSE 94 MG/DL (70-104); POTASSIUM 4.5 MMOL/L (3.5-5.1); PRO BRAIN NATRIURETIC PEPTIDE 628 PG/ML (0-125); SODIUM 145 MMOL/L (135-145); TOTAL CARBON DIOXIDE 32.9 MMOL/L (24-32); eCRCL 29 ML/MIN; eGFR 25 ML/MIN
--- NOTE | 2024-12-20 21:46 | RADIOLOGY REPORT ---
CHEST RADIOGRAPH Indication: CP Technique: Single frontal view of the chest was obtained Comparison: DI CHEST,SINGLE VIEW on DOS: 08/08/24, DI CHEST,SINGLE VIEW on DOS: 07/17/24, DI CHEST,SINGL E VIEW on DOS: 06/03/24 FINDINGS: Lines and Tubes: None Lungs: No focal consolidation. Hyperinflation of the lungs. Pleura: No effusion. No pneumothorax. Cardiomediastinal contours: Unremarkable Bones: No acute osseous abnormality. IMPRESSION: No acute cardiopulmonary disease. Hyperinflation of the lungs.
--- NOTE | 2024-12-20 23:39 | Physician Documentation ---
History of Present Illness ~ Chief Complaint: Shortness of Breath Stated Complaint: SOB Time Seen by MD: 22:29 Primary Medical Doctor: [facility] Source: patient Mode of Arrival: POV Exam Limitations: no limitations HPI Chief Complaint: Shortness a breath Caveat: None Independent Historians: None History of Present Illness: Patient is a 59-year-old man who comes in complaining of shortness of breath. Patient states that this began earlier today he is feeling like he just can not breathe. Patient denies any cough or fever. Patient denies any chest pain. Patient has shortness of breath is worse with the exertion. Patient has COPD. Review of systems: All systems were reviewed and are negative except for what is indicated in the history of present illness. 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 Denies alcohol use. Patient is homeless. Medications: Reviewed as documented Nursing Notes Allergies: Reviewed as documented in Nursing Notes Medication Reconciliation Allergies: Coded Allergies: No Known Allergies (Unverified , 08/15/24) Scheduled Albuterol Sulfate (Ventolin Hfa), 2 PUFFS INH Q4HPRN Atorvastatin Calcium (Atorvastatin Calcium), 20 MG PO DAILY Azithromycin (Zithromax), 1 TAB PO UD Colchicine (Colchicine), 1 CAP PO DAILY Diphenhydramine Hcl (Benadryl), 25 MG PO HS Fluticasone/Salmeterol (Advair 250-50 Diskus), 1 PUFFS INH Q12H Fluticasone/Salmeterol* (Advair 100-50 Diskus*), 1 PUFFS INH Q12H, (Reported) Furosemide (Furosemide), 20 MG PO DAILY Guaifenesin (Mucinex), 600 MG PO Q12H Ibuprofen (Ibu), 1 TAB PO Q8H Omeprazole (Omeprazole), 1 CAP PO DAILY, (Reported) Prednisone (Prednisone), 1 TAB PO DAILY Prednisone* (Prednisone*), 1 TAB PO Q12H Scheduled PRN Albuterol Sulfate (Ventolin Hfa), 2 PUFFS INH Q4HPRN PRN for wheezing Albuterol Sulfate Nebs* (Proventil Nebs*), 2.5 MG IH Q4H PRN for SOB or wheezing, (Reported) Nitroglycerin SL* (Nitrostat SL*), 0.4 MG SL Q5MIN PRN for chest pain Oxycodone Hcl IR* (Oxycodone IR*), 1 TAB PO Q6H PRN for moderate to severe pain Ropinirole HCl (Ropinirole HCl), 1 TAB PO BID PRN for restless legs, (Reported) albuterol inhaler (Pro-Air Inhaler), 2 PUFFS INH Q4HPRN PRN for wheezing, (Reported) Past Medical History Past Medical History: High Cholesterol, Hypertension, COPD, Sleep Apnea, GERD Past Surgical History: no surgical history Alcohol Use: Heavy Drug Use: methamphetamine Lives with: Spouse Lives In: Home Review of Systems All Other Systems at this time: Reviewed and Negative ROS Patient denies any other acute symptoms other than above. All other systems are negative Physical Exam Vital Signs: RN Vital Signs have been reviewed: Yes, Temperature: 98.2, Source: Oral, Heart Rate: 64, Respiratory Rate: 17, BP: 144/71, Pulse Oximetry: 98, Weight: 86.300 Oxygen Flow Rate: 0 Pulse Oximetry Reflects: adequate oxygenation Physical Exam General Appearance: No distress HEENT: Normal OP, moist oral mucosa, PERRL, EOMI Neck: supple, normal ROM, trachea midline Pulmonary: No respiratory distress, CTA except for occasional crackle in the right lateral lung. BS equal Cardiac: RRR, no murmur, rub or gallop, GI: nondistended, soft, nontender, normal bowel sounds, no guarding, no rebound Extremities: normal ROM, no swelling, non-tender Skin: intact, dry, warm, no rashes Neuro: AAOx3, speech is clear, no focal motor weakness Psych: normal affect, good eye contact, no apparent hallucination, normal speech Progress Results/Orders Results/Orders Orders - SACHA MOURA MD Chest,Single View (12/20/24 20:16) Monitor (12/20/24 20:16) Saline Lock (12/20/24 20:16) Oxygen (12/20/24 20:16) Svn Treatment (12/20/24 23:27) Completed Orders - SACHA MOURA MD Chest,Single View (12/20/24 20:16) Cbc/Diff (12/20/24 20:16) BMP (12/20/24 20:16) PBNP (12/20/24 20:16) Electrocardiogram (12/20/24 20:16) Hs Troponin I W Calculations (12/20/24 20:16) Hs Troponin I W Calculations (12/20/24 22:16) Methylprednisolone Sod Succ (Solumedrol (12/20/24 23:30) Ipratropium/Albuterol Nebule (Ipratrop/A (12/20/24 23:30) Medications Received in ER Medications (Trade) Dose Ordered Sig/Osmani Route PRN Reason Start Time Stop Time Status Last Admin Dose Admin (SoluMEDROL 125mg inj) 125 mg ONCE ONCE IV 12/20/24 23:30 12/20/24 23:31 DC 12/21/24 00:25 125 MG (ipratrop/ albuterol 0.5-3(2.5) MG/3ml nebule) 3 ml ONCE ONCE NEB 12/20/24 23:30 12/20/24 23:31 DC 12/21/24 00:13 3 ML Vital Signs 12/20/24 12/20/24 12/20/24 12/20/24 20:34 21:43 21:45 22:41 Temp 98.2 Pulse 78 73 64 Resp 16 22 18 17 B/P (MAP) 103/59 128/76 (93) 144/71 (95) Pulse Ox 98 97 98 O2 Flow Rate 0 12/21/24 12/21/24 12/21/24 12/21/24 00:14 00:15 00:23 00:46 Temp 98.2 Pulse 69 68 67 71 Resp 21 21 16 18 B/P (MAP) 138/66 (90) 136/53 Pulse Ox 97 98 97 93 O2 Delivery Room Air* Room Air* O2 Flow Rate 0 0 FiO2 21 21 Laboratory Tests Test 12/20/24 20:58 12/20/24 23:30 White Blood Count 8.2 Red Blood Count 4.99 Hemoglobin 13.9 L Hematocrit 41.8 L Mean Corpuscular Volume 83.8 Mean Corpuscular Hemoglobin 27.8 Mean Corpuscular Hemoglobin Concent 33.2 Red Cell Distribution Width 14.9 H Platelet Count 263 Mean Platelet Volume 9.1 Neutrophils (%) (Auto) 67.3 Lymphocytes (%) (Auto) 19.9 L Monocytes (%) (Auto) 10.1 Eosinophils (%) (Auto) 2.3 Basophils (%) (Auto) 0.4 Neutrophils # (Auto) 5.5 Lymphocytes # (Auto) 1.6 Monocytes # (Auto) 0.8 Eosinophils # (Auto) 0.2 Basophils # (Auto) 0.0 CBC Comment Sodium Level 145 Potassium Level 4.5 Chloride Level 107 Carbon Dioxide Level 32.9 H Anion Gap 5 L Blood Urea Nitrogen 35 H Creatinine 2.64 H Estimated GFR/1.73 m2 25 BUN/Creatinine Ratio 13.3 Glucose Level 94 Calcium Level 8.9 Troponin I High Sensitivity 9 9 Pro-B-Type Natriuretic Peptide 628 H Albumin 3.7 Chemistry Comments Troponin I High Sens Percent Delta 0 Troponin I Hi Sens Absolute Change 0 Medical Decision Making Additional info obtained from: old records (Prior records show chronic kidney disease with a baseline creatinine of approximately 1.41, recent admission for COPD) Findings Differential diagnosis includes but is not limited to: Acute COPD exacerbation, acute on chronic respiratory failure, acute CHF, acute coronary syndrome EKG independent interpretation: Performed at 8:17 p.m.. Normal sinus rhythm heart rate 88 normal axis, normal ST segments Chest x-ray, single view, indication: Shortness a breath Independent interpretation: Hyperaeration consistent with COPD, flat hemidiaphragms, normal mediastinum, normal cardiac silhouette. Laboratory data independent interpretation: CBC: Mild anemia with a hemoglobin of 13.9 and hematocrit 41.8 CMP: Patient's creatinine is elevated above baseline. Patient's creatinine today is 2.64 up from 1.41. BUN is also elevated at 35 consistent with mild acute kidney injury likely secondary to dehydration. ProBNP: 628 1st troponin: 9 Emergency department course/medical decision-making: Patient presents with shortness of breath and history consistent with the acute COPD exacerbation. There was no evidence of pneumonia or congestive heart failure. Patient is afebrile and hemodynamically stable. Patient does appear to have an acute on chronic kidney injury. Patient will be given 1 L of normal saline. This may also help the patient's COPD. Patient is given Solu-Medrol 125 mg IV and a DuoNeb. Patient isn't requiring supplemental oxygen and appears comfortable at rest. Patient is feeling better and breathing is back to baseline. Patient is stable for discharge. Departure Time of Disposition: 00:27 Disposition: 01 HOME / SELF CARE / HOMELESS Impression: Primary Impression: Acute exacerbation of chronic obstructive airways disease Condition: Stable Discharge Instructions: Chronic Obstructive Pulmonary Disease Exacerbation, [id number] Prescriptions Albuterol Sulfate (Ventolin Hfa) 90 Mcg Hfa.aer.ad 2 PUFFS INH Q4HPRN PRN for wheezing for 30 Days, #18 GM 0 Refills Prov: SACHA MOURA MD 12/21/24 Azithromycin (Zithromax) 250 Mg Tablet 1 TAB PO UD for 5 Days, #6 TAB 2 the first day followed by 1 for days 2-5 Prov: SACHA MOURA MD 12/21/24 Prednisone* (Prednisone*) 20 Mg Tablet 1 TAB PO Q12H for 5 Days, #10 TAB Prov: SACHA MOURA MD 12/21/24 Education Educated: Patient Educated regarding: diagnosis, treatment, need for follow up Signature Scribe Signature: No scribe Attestation: No scribe SACHA MOURA MD Dec 20, 2024 23:39
[2024-12-21] MEDS: ipratropium/albuterol 3ml nebule NEB ONE (00:13)
[2024-12-21 00:14] VITALS: PULSE 69; RESP 21; O2SAT 97
[2024-12-21 00:23] VITALS: PULSE 67; RESP 16; O2SAT 97
[2024-12-21] MEDS: methylPREDNISolone sod succ 125mg/2ml vial IV ONE (00:25)
[2024-12-21] MEDS ORDERED: AZIT250T PO (00:29)
[2024-12-21] MEDS ORDERED: PRED20TA PO (00:29)
[2024-12-21] MEDS ORDERED: ALBU18HF2 INH (00:29)
[2024-12-21 00:46] VITALS: BP 136/53; PULSE 71; RESP 18; TEMP 98.2; O2SAT 93
== END 2024-12-21 00:50 | disposition home or self-care (01) ==
LOC: ER 20:09
DX: J44.1 Chronic obstructive pulmonary disease with (acute) exacerbation (principal); I10 Essential (primary) hypertension; E78.00 Pure hypercholesterolemia, unspecified; G47.30 Sleep apnea, unspecified; K21.9 Gastro-esophageal reflux disease without esophagitis; F15.10 Other stimulant abuse, uncomplicated; F10.90 Alcohol use, unspecified, uncomplicated; Y90.9 Presence of alcohol in blood, level not specified
CPT/HCPCS: 36415; 71045; 80048; 83880; 84484; 85025; 93005; 94640; 96374; 99285; J2919; 94760

== ENCOUNTER 2025-01-12 11:00 | Emergency (ER) | payer MEDICAID ==
[~2025-01-12] VITALS: Ht 175.3 cm; Wt 97.7 kg
--- NOTE | 2025-01-12 11:26 | Physician Documentation ---
History of Present Illness ~ Chief Complaint: Wound Stated Complaint: LEG PAIN Time Seen by MD: 12:43 Primary Medical Doctor: KEVIN WITT [facility] 59 yr old male presents to ER due to chronic lower extremity wounds. Denies chills or fever. Additional note by Nathan Villegas DO: I took over the care of this patient from previous physician. I reviewed any previous notes available, obtain my own history, review of systems and physical examination was performed by myself. This is a 59-year-old gentleman who comes into the emergency department for evaluation of left lower extremity wound. He states that it has only been there for two or three days. Upon further questioning it actually appears that it has been there for quite some time and he can not specifically defined. She did not attempt to treat it. The particular palliating or aggravating factors. Denies any traumatic injury. Does not have a wound care. Denies any fever or chills. Denies any other symptoms. Tetanus within 5 years?: Yes Medication Reconciliation Allergies: Coded Allergies: No Known Allergies (Unverified , 08/15/24) Scheduled Albuterol Sulfate (Ventolin Hfa), 2 PUFFS INH Q4HPRN Atorvastatin Calcium (Atorvastatin Calcium), 20 MG PO DAILY Colchicine (Colchicine), 1 CAP PO DAILY Diphenhydramine Hcl (Benadryl), 25 MG PO HS Fluticasone/Salmeterol (Advair 250-50 Diskus), 1 PUFFS INH Q12H Fluticasone/Salmeterol* (Advair 100-50 Diskus*), 1 PUFFS INH Q12H, (Reported) Furosemide (Furosemide), 20 MG PO DAILY Guaifenesin (Mucinex), 600 MG PO Q12H Ibuprofen (Ibu), 1 TAB PO Q8H Omeprazole (Omeprazole), 1 CAP PO DAILY, (Reported) Prednisone (Prednisone), 1 TAB PO DAILY Scheduled PRN Albuterol Sulfate (Ventolin Hfa), 2 PUFFS INH Q4HPRN PRN for wheezing Albuterol Sulfate Nebs* (Proventil Nebs*), 2.5 MG IH Q4H PRN for SOB or wheezing, (Reported) Nitroglycerin SL* (Nitrostat SL*), 0.4 MG SL Q5MIN PRN for chest pain Oxycodone Hcl IR* (Oxycodone IR*), 1 TAB PO Q6H PRN for moderate to severe pain Ropinirole HCl (Ropinirole HCl), 1 TAB PO BID PRN for restless legs, (Reported) albuterol inhaler (Pro-Air Inhaler), 2 PUFFS INH Q4HPRN PRN for wheezing, (Reported) Past Medical History Past Medical History: High Cholesterol, Hypertension, COPD, Sleep Apnea, GERD Past Surgical History: no surgical history Alcohol Use: Heavy Drug Use: methamphetamine Lives with: Spouse Lives In: Home Review of Systems ROS As stated above in the HPI, otherwise all systems are reviewed and negative. Physical Exam Vital Signs: Temperature: 98.6, Heart Rate: 107, Respiratory Rate: 18, BP: 198/108, Pulse Oximetry: 96, Weight: 97.730 Oxygen Flow Rate: 0 Physical Exam Physical examination: GENERAL: Awake, alert, oriented, GCS 15, no apparent distress, non-toxic appearing, answers questions, follows commands appropriately. HEENT: Atraumatic, normocephalic, pupils equal, extraocular muscles intact Active gross movements, sclerae anicteric, mucus membranes moist, no stridor. NECK: Midline, no JVD CARDIOVASCULAR: Good skin perfusion without evidence of pallor, mottling. PULMONARY: Nonlabored, symmetric chest rise, no audible wheezing, no accessory muscle use, no respiratory distress, speaking in full sentences. GASTROINTESTINAL: Not distended. NEUROLOGIC: Lucid with normal mental status. Normal facial symmetry. Moves all extremities symmetrically and with purpose. No truncal ataxia. Speech is fluid without evidence of dysarthria or aphasia, no focal deficits appreciated. EXTREMITIES: Acute deformities Skin: warm, dry PSYCHIATRIC: Normal affect, normal insight, normal concentration. Focused exam: There is chronic appearing wounds to his left lower extremity with some surrounding cellulitis, no purulent discharge, no bleeding. Neurovascularly intact distally. Progress Results/Orders Results/Orders Vital Signs 01/12/25 11:16 Temp 98.6 Pulse 107 Resp 18 B/P (MAP) 198/108 Pulse Ox 96 O2 Flow Rate 0 Laboratory Tests Test 01/12/25 11:42 White Blood Count 9.5 Red Blood Count 4.32 L Hemoglobin 12.1 L Hematocrit 36.0 L Mean Corpuscular Volume 83.2 Mean Corpuscular Hemoglobin 28.1 Mean Corpuscular Hemoglobin Concent 33.8 Red Cell Distribution Width 14.5 Platelet Count 285 Mean Platelet Volume 8.0 Neutrophils (%) (Auto) 82.7 H Lymphocytes (%) (Auto) 9.1 L Monocytes (%) (Auto) 7.6 Eosinophils (%) (Auto) 0.4 Basophils (%) (Auto) 0.2 Neutrophils # (Auto) 7.9 H Lymphocytes # (Auto) 0.9 L Monocytes # (Auto) 0.7 Eosinophils # (Auto) 0.0 Basophils # (Auto) 0.0 CBC Comment Sodium Level 136 Potassium Level 3.9 Chloride Level 101 Carbon Dioxide Level 26.0 Anion Gap 9 Blood Urea Nitrogen 20 H Creatinine 1.68 H Estimated GFR/1.73 m2 42 BUN/Creatinine Ratio 11.9 Glucose Level 95 Calcium Level 8.8 Total Bilirubin 0.6 Aspartate Amino Transf (AST/SGOT) 29 Alanine Aminotransferase (ALT/SGPT) 18 Alkaline Phosphatase 87 Total Protein 7.5 Albumin 3.1 L Globulin 4.4 H Albumin/Globulin Ratio 0.7 L Chemistry Comments Medical Decision Making Findings Facility Status: ED Holds, [facility] process The plan was discussed with the patient, who demonstrates clear understanding of the plan and is in agreement with the plan unless otherwise noted in the chart. All questions have been answered, all concerns were addressed unless otherwise documented. I was available throughout their ED stay for frequent reassessment and questions. Differential Diagnoses (considered and possible or likely): [Cellulitis, chronic wound, clinically not consistent with the abscess, unlikely to represent necrotizing fasciitis or osteomyelitis at this time] ??Differential Diagnoses (considered and unlikely, not requiring evaluation cur rently): [No evidence of neurovascular injury] [facility] Data Please see [facility] for the following: Independent Historians and external Records Review. Historian: [Patient] Independent Historians: ?[Record review] Medication Management: [Reviewed medication list] Social History and determinants: [Reviewed] Please see the body of the note for the following: Any independent interpretations of ECG, imaging studies. All vitals signs/haemodynamics, ordered tests were independently reviewed and interpreted by myself. Nursing triage complaint and vitals reviewed, additional nursing notes were reviewed as available and I agree unless otherwise noted or documented in contradiction in the chart Vital Signs: Independently reviewed Labs: Independently interpreted Imaging: Independently interpreted Old Medical Records: Independently reviewed, see [facility] for relevant summary and information Pulse Oximetry: [98%] interpreted as [normal on room air] by me [Distribution Lineman: [Regular Rate, Regular rhythm, no ectopy, NSR] reviewed and interpreted by me] Additionally notably showing: [Hemodynamically stable. Unremarkable laboratory workup.] Tests considered but not ordered include: [Imaging does not appear to be necessary as this all appears to be superficial, no evidence of abscess, likely not consistent with a necrotizing fasciitis.] Social Determinants of Health Impact: Patient was evaluated in [facility], [facility] [place] healthcare due to below par ratio of patient to medical providers. [] Comorbid Conditions Impacting Present Evaluation and Care/Treatment: [Multiple, see list] Management Discussions with other Healthcare Providers: [] Treatment and Disposition Medication Management (Given or considered): []. See EMR for details Consideration for Hospitalization/Escalation/Deescalation of Care: Admission for observation has been considered, [however the patient is able to tolerate p.o., their symptoms are controlled, they are able to rely on oral medications, and their chief complaint/diagnosis can be managed on outpatient basis.] ?ED Course:?[No clinical deterioration] ?Shared decision making:?[Patient is hemodynamically stable for discharge home with follow with their primary care provider. [ ] Specific and cautious return precautions provided and discussed with full understanding. Any incidental findings were also discussed and follow up recommendations given. [] All questions answered. Patient/family were able to verbalize back return precautions. Patient/family agree to plan. Copies of imaging and laboratory studies were provided.] Code status:?FULL Please see the full Electronic Medical Record for full details of nursing documentation, medications list, other records of complete past medical history and conditions, vital signs, laboratory studies, and any radiologic study interpretations by radiologists. Portions of this note were completed using [employer] dictation software and as a result there may exist minor errors in spelling. I have reviewed elements of past family and social history and agree as included in note. Departure Disposition: 01 HOME / SELF CARE / HOMELESS Impression: Primary Impression: Lower extremity cellulitis Additional Impression: Chronic wound of extremity Condition: Stable Discharge Instructions: Cellulitis, Adult, Wound Care, Adult Additional Instructions: You need to follow-up with the wound care clinic to make sure that you wounds are healing appropriately Referrals: NO PRIMARY CARE PROVIDER (PCP) Prescriptions Cephalexin*Monohydrate* (Keflex*) 500 Mg Capsule 1 CAP PO Q6H for 10 Days, #40 CAP Prov: NATHAN VILLEGAS DO 01/12/25 Sulfamethoxazole/Trimethoprim (Bactrim Ds Tablet) 800 Mg-160 Mg Tablet 1 TAB PO Q12H for 10 Days, #20 TAB Prov: NATHAN VILLEGAS DO 01/12/25 Education Educated: Patient Educated regarding: diagnosis, treatment, prognosis, need for follow up Signature Scribe Signature: x No scribe Attestation: The note accurately reflects work and decisions made by me.Diann Martinez - JORDAN 01/12/25 11:26 This note accurately reflects clinical decisions, work performed by myself, DO LAYLA Ledesma HEIDI L NP Jan 12, 2025 11:26 NATHAN VILLEGAS DO Jan 12, 2025 13:40
[2025-01-12 11:57] LABS: MEAN PLATELET VOLUME 8.0 FL (7.4-10.4); RED CELL DISTRIBUTION WIDTH 14.5 % (11.5-14.5)
[2025-01-12 12:15] LABS: CREATININE 1.68 MG/DL (0.60-1.10); TOTAL CARBON DIOXIDE 26.0 MMOL/L (24-32); eCRCL 46 ML/MIN; eGFR 42 ML/MIN
[2025-01-12] MEDS ORDERED: bacitracin 15gm ointment TP ONE (12:15)
[2025-01-12] MEDS ORDERED: TETanus/Pertussis (Acell)/Diphther VAC/PF (Tdap-Adult) 0.5ml syringe IMVAC ONE (12:15)
[2025-01-12] MEDS ORDERED: CEPH-585 PO (13:40)
[2025-01-12] MEDS ORDERED: SULF1TAB49 PO (13:40)
[2025-01-12 14:31] VITALS: BP 168/93; PULSE 94; RESP 14; TEMP 98.6; O2SAT 95
== END 2025-01-12 14:41 | disposition home or self-care (01) ==
LOC: ER 11:01
DX: L03.116 Cellulitis of left lower limb (principal); J44.9 Chronic obstructive pulmonary disease, unspecified; E78.00 Pure hypercholesterolemia, unspecified; I10 Essential (primary) hypertension; G47.30 Sleep apnea, unspecified; K21.9 Gastro-esophageal reflux disease without esophagitis; F15.90 Other stimulant use, unspecified, uncomplicated; F10.90 Alcohol use, unspecified, uncomplicated; Z79.899 Other long term (current) drug therapy; Y90.9 Presence of alcohol in blood, level not specified
CPT/HCPCS: 36415; 80053; 85025; 99283